=== PATIENT | female | born 1970 | race African-American/Black ===

== ENCOUNTER 2016-07-28 13:51 | Emergency (ER) | payer SELFPAY ==
[~2016-07-28] VITALS: Ht 157.5 cm; Wt 101.2 kg
[~2016-07-28 13:51] MED LIST: ACET325T21 PO; BECL8.7A6 IH; BENZ100C PO; BISA10SU55 RC; CARB200T PO; CYCL10TA2 PO; IBUP-1027 PO; LEVE750T41 PO; LOSA1TAB12 PO; METO200T2 PO; MORP15TA PO; OMEP40CA5 PO; ONDA4TAB7 PO; POLY17PO5 PO; POTA20LI14 PO; PRED-220 PO; SENN8.6T3 PO; VENTOLIN HFA18 GM INH
--- NOTE | 2016-07-28 14:19 | PHYS DOC ---
Past Medical History Past Medical History: Hypertension, Migraines, Seizure, Other Additional Past Medical Histor: CEREBRAL PALSY, CHRONIC BACK PAIN, HYPOXIA, BLIND RIGHT EYE Past Surgical History: Cholecystectomy, Other Additional Past Surgical Histo: HEEL CORD LENGTHENING X2 BILAT Alcohol Use: Occasionally Drug Use: Marijuana Adult General Chief Complaint Chief Complaint: SEIZURE HPI HPI Patient is a 46 year old female who presents s/p seizure. Has known h/o of same for which she takes Keppra and Tegretol. Has not missed any doses. Had witnessed seizure at adult day care that lasted ~90 seconds. Patient says she usually has seizure ~4-6 months, has been about 3.5 months since last. She is still a little groggy but is returning to baseline. No other acute complaints other than recent sneezing and rhinorrhea. Review of Systems Review of Systems Constitutional: Denies fever or chills Eyes: Denies change in visual acuity or eye pain HENT: Sneezing, rhinorrhea. Denies sore throat Respiratory: Denies cough or shortness of breath Cardiovascular: Denies chest pain GI: Denies abdominal pain, nausea, vomiting, bloody stools or diarrhea : Denies dysuria or hematuria Musculoskeletal: Denies back pain or joint pain Integument: Denies rash or skin lesions Neurologic: Seizure. Denies headache, focal weakness or sensory changes Current Medications Current Medications Current Medications Medications (Trade) Dose Ordered Sig/Brigitte Start Time Stop Time Status Last Admin Dose Admin Lorazepam (Ativan) 1 mg 1X ONCE 07/28/16 14:30 07/28/16 14:45 DC 07/28/16 14:59 1 MG Allergies Allergies Allergies Coded Allergies Type Severity Reaction Last Updated Verified divalproex sodium Allergy Intermediate 06/04/13 Yes lamotrigine Allergy Intermediate 06/04/13 Yes metoclopramide HCl Allergy Intermediate 06/04/13 Yes promethazine HCl Allergy Intermediate 06/04/13 Yes diphenhydramine HCl Allergy Mild 06/04/13 Yes Physical Exam Physical Exam Constitutional: Well developed, well nourished, no acute distress, non-toxic appearance HENT: Normocephalic, atraumatic, bilateral external ears normal Eyes: Strabismus, blind in R eye, EOMI, conjunctiva normal, no discharge Neck: Normal range of motion, no stridor Cardiovascular: Heart rate normal, regular rhythm, no murmur Lungs & Thorax: Bilateral breath sounds clear to auscultation Abdomen: Bowel sounds normal, soft, non-distended, no TTP Skin: Warm, dry, no erythema, no rash Extremities: No obvious deformity, no edema Neurologic: Alert and oriented X 3, GCS 15, LUE/LLE weaker than R side (this is baseline), sensation to light touch intact throughout, no dystaxia noted Current Patient Data Vital Signs Vital Signs Date Time Temp Pulse Resp B/P Pulse Ox O2 Delivery O2 Flow Rate FiO2 07/28/16 16:14 20 20 176/76 96 07/28/16 13:59 98.4 Room Air 98.4 Lab Values Laboratory Tests Test 07/28/16 14:20 White Blood Count 5.7x10^3/uL (4.0-11.0) Red Blood Count 3.83x10^6/uL (3.50-5.40) Hemoglobin 12.0g/dL (12.0-15.5) Hematocrit 36.1% (36.0-47.0) Mean Corpuscular Volume 94fL (79-100) Mean Corpuscular Hemoglobin 31pg (25-35) Mean Corpuscular Hemoglobin Concent 33g/dL (31-37) Red Cell Distribution Width 13.5% (11.5-14.5) Platelet Count 270x10^3/uL (140-400) Neutrophils (%) (Auto) 53% (31-73) Lymphocytes (%) (Auto) 34% (24-48) Monocytes (%) (Auto) 12% (0-9) H Eosinophils (%) (Auto) 0% (0-3) Basophils (%) (Auto) 1% (0-3) Neutrophils # (Auto) 3.0x10^3uL (1.8-7.7) Lymphocytes # (Auto) 1.9x10^3/uL (1.0-4.8) Monocytes # (Auto) 0.7x10^3/uL (0.0-1.1) Eosinophils # (Auto) 0.0x10^3/uL (0.0-0.7) Basophils # (Auto) 0.1x10^3/uL (0.0-0.2) Sodium Level 140mmol/L (136-145) Potassium Level 3.9mmol/L (3.5-5.1) Chloride Level 104mmol/L (98-107) Carbon Dioxide Level 26mmol/L (21-32) Anion Gap 10 (6-14) Blood Urea Nitrogen 15mg/dL (7-20) Creatinine 0.7mg/dL (0.6-1.0) Estimated GFR (Cockcroft-Gault) 110.0 Glucose Level 79mg/dL (70-99) Calcium Level 8.9mg/dL (8.5-10.1) Magnesium Level 2.0mg/dL (1.8-2.4) Carbamazepine (Tegretol) Level 14.6mcg/mL (4.0-12.0) H Carbamazepine Last Dose Date 07/28/16 Carbamazepine Last Dose Time 0000 Laboratory Tests 07/28/16 14:20 Laboratory Tests 07/28/16 14:20 EKG EKG [] Radiology/Procedures Radiology/Procedures [] Course & Med Decision Making Course & Med Decision Making Pertinent Labs and Imaging studies reviewed. (See chart for details) Patient is 46 year old female who presents s/p seizure, of which she has known history. Will check electrolytes, drug levels. Dose of ativan ordered. Labs notable for slightly high carbamazepine level. Discussed results with patient and caretakers. Will discharge home with instructions for follow up, return precautions. Dragon Disclaimer Dragon Disclaimer This electronic medical record was generated, in whole or in part, using a voice recognition dictation system. Departure Departure Impression: Primary Impression: Seizure Disposition: 01 HOME, SELF-CARE Condition: IMPROVED Referrals: ARIANNA DALLAS MD (PCP) Patient Instructions: Seizure, Adult Additional Instructions: Thank you for allowing us to provide care today in the Emergency Department. Hold one dose of carbamazepine, then resume as scheduled. Continue giving Keppra as scheduled. Schedule a follow up appointment with your neurologist. Return promptly to the Emergency Department if you develop any new or concerning symptoms. OWEN BURGOS MD Jul 28, 2016 14:19
[2016-07-28] MEDS ORDERED: LORAZEPAM 2 MG/ML VIAL IV ONE (14:30)
[2016-07-28 14:35] LABS: BASO # 0.1 x10^3/uL (0.0-0.2); BASO % 1 % (0-3); EOS % 0 % (0-3); HEMATOCRIT 36.1 % (36.0-47.0); LYMPH # 1.9 x10^3/uL (1.0-4.8); LYMPH % 34 % (24-48); MEAN CORPUSCULAR HEMOGLOBIN 31 pg (25-35); MEAN CORPUSCULAR HGB CONC 33 g/dL (31-37); MEAN CORPUSCULAR VOLUME 94 fL (79-100); MONO % 12 % (0-9); NEUT % 53 % (31-73); PLATELET COUNT 270 x10^3/uL (140-400); RED BLOOD COUNT 3.83 x10^6/uL (3.50-5.40); RED CELL DISTRIBUTION WIDTH 13.5 % (11.5-14.5); WHITE BLOOD COUNT 5.7 x10^3/uL (4.0-11.0)
[2016-07-28 15:01] LABS: ANION GAP 10 (6-14); BLOOD UREA NITROGEN 15 mg/dL (7-20); CALCIUM 8.9 mg/dL (8.5-10.1); CARBON DIOXIDE 26 mmol/L (21-32); CHLORIDE 104 mmol/L (98-107); CREATININE 0.7 mg/dL (0.6-1.0); GLUCOSE 79 mg/dL (70-99); POTASSIUM 3.9 mmol/L (3.5-5.1); SODIUM 140 mmol/L (136-145)
[2016-07-28 16:14] VITALS: BP 176/76
== END 2016-07-28 16:25 | disposition home or self-care (01) ==
LOC: ER 13:51
DX: R56.9 Unspecified convulsions (principal); I10 Essential (primary) hypertension; G43.909 Migraine, unspecified, not intractable, without status migrainosus; G89.29 Other chronic pain; F12.10 Cannabis abuse, uncomplicated; H54.41 Blindness, right eye, normal vision left eye; Z90.49 Acquired absence of other specified parts of digestive tract; Z88.8 Allergy status to other drugs, medicaments and biological substances
CPT/HCPCS: 36415; 80048; 80156; 80177; 83735; 85027; 96374; 99284; J2060